=== PATIENT | female | born 1930 | race Caucasian/White ===

== ENCOUNTER → 2017-11-21 | Outpatient (CLI) | payer MEDICARE | END | disposition home or self-care (01) | LOC: KCIC DEXA 11:29 | DX: E28.8 Other ovarian dysfunction (principal); N28.89 Other specified disorders of kidney and ureter; M81.0 Age-related osteoporosis without current pathological fracture; M85.88 Other specified disorders of bone density and structure, other site | CPT/HCPCS: 77080 ==

== ENCOUNTER → 2017-12-31 | Outpatient (CLI) | payer MEDICARE ==
[2017-12-31 11:23] LABS: ADD MAN DIFF? NO
[2017-12-31 11:31] LABS: BASO % 1 % (0-3); EOS # 0.1 x10^3/uL (0.0-0.7); EOS % 1 % (0-3); HEMATOCRIT 33.5 % (36.0-47.0); LYMPH # 0.4 x10^3/uL (1.0-4.8); LYMPH % 7 % (24-48); MEAN CORPUSCULAR HEMOGLOBIN 32 pg (25-35); MEAN CORPUSCULAR HGB CONC 33 g/dL (31-37); MEAN CORPUSCULAR VOLUME 97 fL (79-100); MONO # 0.4 x10^3/uL (0.0-1.1); MONO % 7 % (0-9); NEUT # 5.2 x10^3uL (1.8-7.7); NEUT % 84 % (31-73); PLATELET COUNT 238 x10^3/uL (140-400); RED BLOOD COUNT 3.44 x10^6/uL (3.50-5.40); RED CELL DISTRIBUTION WIDTH 14.9 % (11.5-14.5); WHITE BLOOD COUNT 6.2 x10^3/uL (4.0-11.0)
[2017-12-31 11:35] LABS: INR 1.1 (0.8-1.1); PARTIAL THROMBOPLASTIN TIME 24 SEC (24-38); PROTHROMBIN TIME PATIENT 13.4 SEC (11.7-14.0)
[2017-12-31 11:41] LABS: ANION GAP 9 (6-14); BLOOD UREA NITROGEN 80 mg/dL (7-20); CALCIUM 9.8 mg/dL (8.5-10.1); CARBON DIOXIDE 25 mmol/L (21-32); CHLORIDE 104 mmol/L (98-107); CREATININE 3.5 mg/dL (0.6-1.0); GFR 12.4; GLUCOSE 122 mg/dL (70-99); POTASSIUM 4.1 mmol/L (3.5-5.1); SODIUM 138 mmol/L (136-145)
== END | disposition home or self-care (01) ==
LOC: LAB 10:53
DX: N18.6 End stage renal disease (principal)
CPT/HCPCS: 36415; 80048; 85025; 85610; 85730

== ENCOUNTER → 2018-01-11 | Outpatient (CLI) | payer MEDICARE | END | disposition home or self-care (01) | LOC: KCIC 15:23 | DX: R91.8 Other nonspecific abnormal finding of lung field (principal) | CPT/HCPCS: 71046 ==

== ENCOUNTER → 2018-01-22 | Outpatient (CLI) | payer MEDICARE | END | disposition home or self-care (01) | LOC: ECHO 12:39 | DX: I08.3 Combined rheumatic disorders of mitral, aortic and tricuspid valves (principal); I27.20 Pulmonary hypertension, unspecified | CPT/HCPCS: 93306 ==

== ENCOUNTER 2018-03-12 11:10 | Inpatient (IN) | payer MEDICARE ==
[2018-03-12 11:58] LABS: BASO % 1 % (0-3); EOS # 0.4 x10^3/uL (0.0-0.7); EOS % 8 % (0-3); HEMATOCRIT 26.9 % (36.0-47.0); HEMOGLOBIN 9.1 g/dL (12.0-15.5); LYMPH # 0.3 x10^3/uL (1.0-4.8); LYMPH % 6 % (24-48); MEAN CORPUSCULAR HEMOGLOBIN 33 pg (25-35); MEAN CORPUSCULAR HGB CONC 34 g/dL (31-37); MEAN CORPUSCULAR VOLUME 97 fL (79-100); MONO # 0.5 x10^3/uL (0.0-1.1); MONO % 9 % (0-9); NEUT # 4.5 x10^3uL (1.8-7.7); NEUT % 77 % (31-73); PLATELET COUNT 240 x10^3/uL (140-400); RED BLOOD COUNT 2.78 x10^6/uL (3.50-5.40); RED CELL DISTRIBUTION WIDTH 17.7 % (11.5-14.5); WHITE BLOOD COUNT 5.8 x10^3/uL (4.0-11.0)
[2018-03-12 12:00] LABS: ADD MAN DIFF? YES; ANION GAP 14 (6-14); BLOOD UREA NITROGEN 121 mg/dL (7-20); BUN/CREATININE RATIO 30 (6-20); CALCIUM 9.3 mg/dL (8.5-10.1); CARBON DIOXIDE 19 mmol/L (21-32); CHLORIDE 101 mmol/L (98-107); CREATININE 4.1 mg/dL (0.6-1.0); GFR 10.3; GLUCOSE 163 mg/dL (70-99); POTASSIUM 3.8 mmol/L (3.5-5.1); SODIUM 134 mmol/L (136-145)
[2018-03-12 12:04] LABS: ALBUMIN 3.1 g/dL (3.4-5.0); ALBUMIN/GLOBULIN RATIO 0.6 (1.0-1.7); ALK PHOS 76 U/L (46-116); ALT (SGPT) 22 U/L (14-59); AST (SGOT) 26 U/L (15-37); TOTAL BILIRUBIN 0.5 mg/dL (0.2-1.0); TOTAL PROTEIN 8.1 g/dL (6.4-8.2)
[2018-03-12 13:01] LABS: % EOS 4 % (0-5); % LYMPHS 6 % (24-48); % SEGS 90 % (35-66); PLT ESTIMATE ADEQUATE (ADEQUATE)
[2018-03-12] MEDS ORDERED: ONDANSETRON PF 4 MG/2 ML VIAL. IV ×2 (13:45→14:45)
[2018-03-12] MEDS ORDERED: fentaNYL PF VIAL 100 MCG/2 ML VIAL IV ×2 (13:45→15:00)
[2018-03-12] MEDS ORDERED: ALBUTEROL SULFATE 2.5 MG/3 ML NEBU. NEB (14:45)
[2018-03-12] MEDS ORDERED: ACETAMINOPHEN 325 MG TABLET. PO (14:45)
[2018-03-12] MEDS: INSULIN LISPRO 300 UNITS/3 ML INSULN.PEN. SQ (16:30)
[2018-03-12 16:50] LABS: POC GLUCOSE 129 mg/dL (70-99)
[2018-03-12] MEDS: IPRATRPIUM/ALBUTEROL 0.5/2.5MG 3 ML NEBU. NEB ×2 (17:08→19:48)
[2018-03-12] MEDS: IV NORMAL SALINE 1000ML BAG 1,000 ML IV (17:46)
[2018-03-12] MEDS: BUDESONIDE 0.5 MG/2 ML NEBU. NEB (19:48)
[2018-03-12] MEDS: ACETAMINOPHEN 325 MG TABLET. PO (21:14)
[2018-03-12] MEDS: SIMVASTATIN 40 MG TABLET. PO (21:14)
[2018-03-12 21:23] LABS: BILIRUBIN,URINE NEGATIVE (NEG); CLARITY,URINE TURBID; COLOR,URINE YELLOW; GLUCOSE,URINE NEGATIVE (NEG); NITRITE,URINE NEGATIVE (NEG); PROTEIN,URINE 100 mg/dL (NEG-TRACE); UROBILINOGEN,URINE 0.2 mg/dL (0.2 mg/dL)
[2018-03-12 21:29] LABS: BACTERIA,URINE MANY /HPF (0-FEW); WBC,URINE TNTC /HPF (0-4)
[2018-03-13 00:27] LABS: POC GLUCOSE 146 mg/dL (70-99)
[2018-03-13] MEDS: LEVOTHYROXINE 50 MCG TABLET PO (06:18)
[2018-03-13 06:37] LABS: ADD MAN DIFF? NO
[2018-03-13 07:05] LABS: BASO % 1 % (0-3); EOS # 0.1 x10^3/uL (0.0-0.7); EOS % 1 % (0-3); HEMOGLOBIN 8.1 g/dL (12.0-15.5); LYMPH # 0.3 x10^3/uL (1.0-4.8); LYMPH % 5 % (24-48); MEAN CORPUSCULAR HEMOGLOBIN 33 pg (25-35); MEAN CORPUSCULAR HGB CONC 34 g/dL (31-37); MEAN CORPUSCULAR VOLUME 97 fL (79-100); MONO # 0.5 x10^3/uL (0.0-1.1); MONO % 7 % (0-9); NEUT # 5.7 x10^3uL (1.8-7.7); NEUT % 86 % (31-73); PLATELET COUNT 204 x10^3/uL (140-400); RED BLOOD COUNT 2.47 x10^6/uL (3.50-5.40); RED CELL DISTRIBUTION WIDTH 17.2 % (11.5-14.5); WHITE BLOOD COUNT 6.6 x10^3/uL (4.0-11.0)
[2018-03-13 07:06] LABS: ANION GAP 15 (6-14); BLOOD UREA NITROGEN 118 mg/dL (7-20); CALCIUM 8.8 mg/dL (8.5-10.1); CARBON DIOXIDE 17 mmol/L (21-32); CHLORIDE 103 mmol/L (98-107); CREATININE 3.8 mg/dL (0.6-1.0); GFR 11.2; GLUCOSE 106 mg/dL (70-99); MAGNESIUM 2.6 mg/dL (1.8-2.4); PHOSPHORUS 4.9 mg/dL (2.6-4.7); POTASSIUM 4.1 mmol/L (3.5-5.1); SODIUM 135 mmol/L (136-145)
[2018-03-13] MEDS: INSULIN LISPRO 300 UNITS/3 ML INSULN.PEN. SQ ×3 (07:30→16:30)
[2018-03-13] MEDS: BUDESONIDE 0.5 MG/2 ML NEBU. NEB ×2 (07:50→20:00)
[2018-03-13] MEDS: IPRATRPIUM/ALBUTEROL 0.5/2.5MG 3 ML NEBU. NEB ×4 (07:50→20:00)
[2018-03-13 08:40] LABS: POC GLUCOSE 99 mg/dL (70-99)
[2018-03-13] MEDS: amLODIPine BESYLATE 5 MG TABLET PO (09:00)
[2018-03-13] MEDS: PANTOPRAZOLE 40 MG TABLET.DR. PO (10:00)
[2018-03-13] MEDS: ACETAMINOPHEN 325 MG TABLET. PO ×2 (10:01→21:14)
[2018-03-13] MEDS: CALCITRIOL 0.25 MCG CAPSULE. PO (10:01)
[2018-03-13 12:11] LABS: POC GLUCOSE 119 mg/dL (70-99)
[2018-03-13] MEDS ORDERED: LIDOCAINE WITH 8.4% SOD BICARB 3 ML DISP.SYRIN. (13:29)
[2018-03-13] MEDS ORDERED: HEPARIN for IV BOLUS 10,000 UNIT/10 ML VIAL. (13:29)
[2018-03-13] MEDS: LIDOCAINE WITH 8.4% SOD BICARB 3 ML DISP.SYRIN. IJ (14:44)
[2018-03-13 15:06] LABS: HEPATITIS B SURFACE AG Nonreactive (Nonreactive)
[2018-03-13 15:29] LABS: HEPATITIS B SURFACE AB Nonreactive
[2018-03-13 17:25] LABS: POC GLUCOSE 134 mg/dL (70-99)
[2018-03-13] MEDS: IV NORMAL SALINE 1000ML BAG 1,000 ML IV (17:45)
[2018-03-13] MEDS ORDERED: IV NORMAL SALINE 1000ML BAG 1,000 ML IV ×2 (17:46)
[2018-03-13] MEDS ORDERED: DIALYSIS PATIENT. MC (18:00)
[2018-03-13] MEDS ORDERED: diphenhydrAMINE 50 MG/ML VIAL IV ×2 (18:00)
[2018-03-13] MEDS: SIMVASTATIN 40 MG TABLET. PO (21:14)
[2018-03-13 21:23] LABS: POC GLUCOSE 124 mg/dL (70-99)
[2018-03-14 02:18] LABS: HEMOGLOBIN A1C 4.8 % (4.8-5.6)
[2018-03-14] MEDS: LEVOTHYROXINE 50 MCG TABLET PO (06:40)
[2018-03-14] MEDS: INSULIN LISPRO 300 UNITS/3 ML INSULN.PEN. SQ ×3 (07:30→16:30)
[2018-03-14] MEDS: BUDESONIDE 0.5 MG/2 ML NEBU. NEB ×2 (08:06→18:10)
[2018-03-14] MEDS: IPRATRPIUM/ALBUTEROL 0.5/2.5MG 3 ML NEBU. NEB ×4 (08:06→18:10)
[2018-03-14] MEDS: IV NORMAL SALINE 1000ML BAG 1,000 ML IV (08:16)
[2018-03-14] MEDS: amLODIPine BESYLATE 5 MG TABLET PO (08:17)
[2018-03-14] MEDS: ACETAMINOPHEN 325 MG TABLET. PO ×2 (08:17→20:56)
[2018-03-14] MEDS: PANTOPRAZOLE 40 MG TABLET.DR. PO (08:17)
[2018-03-14 09:28] LABS: ADD MAN DIFF? NO
[2018-03-14 09:36] LABS: BASO % 0 % (0-3); EOS # 0.3 x10^3/uL (0.0-0.7); EOS % 4 % (0-3); HEMATOCRIT 23.8 % (36.0-47.0); HEMOGLOBIN 7.9 g/dL (12.0-15.5); LYMPH # 0.2 x10^3/uL (1.0-4.8); LYMPH % 3 % (24-48); MEAN CORPUSCULAR HEMOGLOBIN 32 pg (25-35); MEAN CORPUSCULAR HGB CONC 33 g/dL (31-37); MEAN CORPUSCULAR VOLUME 96 fL (79-100); MONO # 0.3 x10^3/uL (0.0-1.1); MONO % 4 % (0-9); NEUT # 7.2 x10^3uL (1.8-7.7); NEUT % 89 % (31-73); PLATELET COUNT 186 x10^3/uL (140-400); RED BLOOD COUNT 2.47 x10^6/uL (3.50-5.40); RED CELL DISTRIBUTION WIDTH 17.5 % (11.5-14.5); WHITE BLOOD COUNT 8.1 x10^3/uL (4.0-11.0)
[2018-03-14 09:41] LABS: ANION GAP 7 (6-14); BLOOD UREA NITROGEN 51 mg/dL (7-20); CALCIUM 8.7 mg/dL (8.5-10.1); CARBON DIOXIDE 29 mmol/L (21-32); CHLORIDE 97 mmol/L (98-107); CREATININE 2.3 mg/dL (0.6-1.0); GFR 20.1; GLUCOSE 140 mg/dL (70-99); POTASSIUM 3.7 mmol/L (3.5-5.1); SODIUM 133 mmol/L (136-145)
[2018-03-14 11:25] LABS: POC GLUCOSE 99 mg/dL (70-99)
[2018-03-14 11:26] LABS: POC GLUCOSE 110 mg/dL (70-99)
[2018-03-14] MEDS ORDERED: IV NORMAL SALINE 1000ML BAG 1,000 ML IV ×2 (11:39)
[2018-03-14] MEDS ORDERED: DIALYSIS PATIENT. MC ×2 (11:45)
[2018-03-14] MEDS ORDERED: ALBUMIN HUMAN 25% 200 ML IV (11:45)
[2018-03-14] MEDS ORDERED: 0.9 % SODIUM CHLORIDE 10 ML DISP.SYRIN. IV (11:45)
[2018-03-14 18:07] LABS: POC GLUCOSE 101 mg/dL (70-99)
[2018-03-14] MEDS: SIMVASTATIN 40 MG TABLET. PO (20:56)
[2018-03-14 21:11] LABS: POC GLUCOSE 114 mg/dL (70-99)
[2018-03-15 06:25] LABS: ADD MAN DIFF? NO
[2018-03-15 06:34] LABS: BASO % 0 % (0-3); EOS % 0 % (0-3); HEMATOCRIT 23.9 % (36.0-47.0); HEMOGLOBIN 7.9 g/dL (12.0-15.5); LYMPH # 0.2 x10^3/uL (1.0-4.8); LYMPH % 2 % (24-48); MEAN CORPUSCULAR HEMOGLOBIN 32 pg (25-35); MEAN CORPUSCULAR HGB CONC 33 g/dL (31-37); MEAN CORPUSCULAR VOLUME 98 fL (79-100); MONO # 0.3 x10^3/uL (0.0-1.1); MONO % 3 % (0-9); NEUT # 7.8 x10^3uL (1.8-7.7); NEUT % 94 % (31-73); PLATELET COUNT 180 x10^3/uL (140-400); RED BLOOD COUNT 2.44 x10^6/uL (3.50-5.40); RED CELL DISTRIBUTION WIDTH 17.4 % (11.5-14.5); WHITE BLOOD COUNT 8.3 x10^3/uL (4.0-11.0)
[2018-03-15] MEDS: LEVOTHYROXINE 50 MCG TABLET PO (06:37)
[2018-03-15 06:51] LABS: ANION GAP 4 (6-14); BLOOD UREA NITROGEN 26 mg/dL (7-20); CALCIUM 8.5 mg/dL (8.5-10.1); CARBON DIOXIDE 32 mmol/L (21-32); CHLORIDE 99 mmol/L (98-107); CREATININE 1.9 mg/dL (0.6-1.0); GLUCOSE 115 mg/dL (70-99); POTASSIUM 4.5 mmol/L (3.5-5.1); SODIUM 135 mmol/L (136-145)
[2018-03-15 07:01] LABS: PREALBUMIN 14.4 mg/dL (16.0-42.0)
[2018-03-15] MEDS: BUDESONIDE 0.5 MG/2 ML NEBU. NEB ×2 (07:08→19:02)
[2018-03-15] MEDS: IPRATRPIUM/ALBUTEROL 0.5/2.5MG 3 ML NEBU. NEB ×4 (07:08→19:01)
[2018-03-15] MEDS: INSULIN LISPRO 300 UNITS/3 ML INSULN.PEN. SQ ×3 (07:30→16:30)
[2018-03-15 08:21] LABS: POC GLUCOSE 114 mg/dL (70-99)
[2018-03-15] MEDS: CALCITRIOL 0.25 MCG CAPSULE. PO (08:47)
[2018-03-15] MEDS: PANTOPRAZOLE 40 MG TABLET.DR. PO (08:48)
[2018-03-15] MEDS: amLODIPine BESYLATE 5 MG TABLET PO (08:48)
[2018-03-15] MEDS: ACETAMINOPHEN 325 MG TABLET. PO ×2 (08:48→22:27)
[2018-03-15 12:00] LABS: POC GLUCOSE 158 mg/dL (70-99)
[2018-03-15 16:38] LABS: POC GLUCOSE 146 mg/dL (70-99)
[2018-03-15 20:29] LABS: POC GLUCOSE 159 mg/dL (70-99)
[2018-03-15] MEDS: SIMVASTATIN 40 MG TABLET. PO (22:27)
[2018-03-16 04:28] LABS: ADD MAN DIFF? NO
[2018-03-16 04:56] LABS: BASO % 0 % (0-3); EOS # 0.3 x10^3/uL (0.0-0.7); EOS % 3 % (0-3); HEMATOCRIT 22.5 % (36.0-47.0); HEMOGLOBIN 7.3 g/dL (12.0-15.5); LYMPH # 0.6 x10^3/uL (1.0-4.8); LYMPH % 7 % (24-48); MEAN CORPUSCULAR HEMOGLOBIN 32 pg (25-35); MEAN CORPUSCULAR HGB CONC 33 g/dL (31-37); MEAN CORPUSCULAR VOLUME 99 fL (79-100); MONO # 0.5 x10^3/uL (0.0-1.1); MONO % 6 % (0-9); NEUT # 7.2 x10^3uL (1.8-7.7); NEUT % 84 % (31-73); PLATELET COUNT 195 x10^3/uL (140-400); RED BLOOD COUNT 2.28 x10^6/uL (3.50-5.40); RED CELL DISTRIBUTION WIDTH 17.5 % (11.5-14.5); WHITE BLOOD COUNT 8.6 x10^3/uL (4.0-11.0)
[2018-03-16 05:13] LABS: ANION GAP 7 (6-14); BLOOD UREA NITROGEN 55 mg/dL (7-20); CALCIUM 9.5 mg/dL (8.5-10.1); CARBON DIOXIDE 30 mmol/L (21-32); CHLORIDE 98 mmol/L (98-107); CREATININE 2.9 mg/dL (0.6-1.0); GFR 15.4; GLUCOSE 114 mg/dL (70-99); POTASSIUM 3.9 mmol/L (3.5-5.1); SODIUM 135 mmol/L (136-145)
[2018-03-16] MEDS: LEVOTHYROXINE 50 MCG TABLET PO (05:33)
[2018-03-16] MEDS: IPRATRPIUM/ALBUTEROL 0.5/2.5MG 3 ML NEBU. NEB ×4 (07:15→20:00)
[2018-03-16] MEDS: BUDESONIDE 0.5 MG/2 ML NEBU. NEB ×2 (07:16→20:00)
[2018-03-16] MEDS: INSULIN LISPRO 300 UNITS/3 ML INSULN.PEN. SQ ×3 (07:30→16:30)
[2018-03-16] MEDS: PANTOPRAZOLE 40 MG TABLET.DR. PO (07:30)
[2018-03-16 08:20] LABS: POC GLUCOSE 92 mg/dL (70-99)
[2018-03-16] MEDS ORDERED: IV NORMAL SALINE 1000ML BAG 1,000 ML IV ×2 (08:59)
[2018-03-16] MEDS: amLODIPine BESYLATE 5 MG TABLET PO (09:00)
[2018-03-16] MEDS: ACETAMINOPHEN 325 MG TABLET. PO ×2 (09:00→20:54)
[2018-03-16] MEDS ORDERED: DIALYSIS PATIENT. MC ×2 (09:00)
[2018-03-16] MEDS: CEFPODOXIME PROXETIL 100 MG TABLET. PO ×2 (11:30→20:53)
[2018-03-16 17:19] LABS: POC GLUCOSE 110 mg/dL (70-99)
[2018-03-16 20:44] LABS: POC GLUCOSE 134 mg/dL (70-99)
[2018-03-16] MEDS: SIMVASTATIN 40 MG TABLET. PO (20:55)
[2018-03-17] MEDS: LEVOTHYROXINE 50 MCG TABLET PO (06:05)
[2018-03-17] MEDS: INSULIN LISPRO 300 UNITS/3 ML INSULN.PEN. SQ ×3 (07:30→16:30)
[2018-03-17] MEDS: BUDESONIDE 0.5 MG/2 ML NEBU. NEB ×2 (07:39→20:42)
[2018-03-17] MEDS: IPRATRPIUM/ALBUTEROL 0.5/2.5MG 3 ML NEBU. NEB ×4 (07:39→20:42)
[2018-03-17 07:59] LABS: POC GLUCOSE 81 mg/dL (70-99)
[2018-03-17] MEDS: CEFPODOXIME PROXETIL 100 MG TABLET. PO ×2 (08:25→21:15)
[2018-03-17] MEDS: PANTOPRAZOLE 40 MG TABLET.DR. PO (08:25)
[2018-03-17] MEDS: CALCITRIOL 0.25 MCG CAPSULE. PO (08:25)
[2018-03-17] MEDS: ACETAMINOPHEN 325 MG TABLET. PO ×2 (08:26→21:15)
[2018-03-17] MEDS: amLODIPine BESYLATE 5 MG TABLET PO (08:26)
[2018-03-17] MEDS ORDERED: MAGNESIUM SULFATE 2GM 50 ML IV (09:00)
[2018-03-17 11:00] LABS: RETIC COUNT 2.2 % (0.5-2.5)
[2018-03-17 11:03] LABS: % SAT IRON 16 % (15-34); IRON,SERUM 26 ug/dL (50-170)
[2018-03-17 11:15] LABS: FERRITIN 615 ng/mL (8-252)
[2018-03-17 11:58] LABS: POC GLUCOSE 102 mg/dL (70-99)
[2018-03-17 16:58] LABS: POC GLUCOSE 81 mg/dL (70-99)
[2018-03-17 20:57] LABS: POC GLUCOSE 158 mg/dL (70-99)
[2018-03-17] MEDS: DARBEPOETIN ALFA 60 MCG/0.3 ML DISP.SYRIN. SQ (21:14)
[2018-03-17] MEDS: SIMVASTATIN 40 MG TABLET. PO (21:15)
[2018-03-18 05:17] LABS: HEMOGLOBIN 7.1 g/dL (12.0-15.5)
[2018-03-18 05:29] LABS: ALBUMIN 2.5 g/dL (3.4-5.0); ANION GAP 7 (6-14); BLOOD UREA NITROGEN 41 mg/dL (7-20); CALCIUM 8.5 mg/dL (8.5-10.1); CARBON DIOXIDE 29 mmol/L (21-32); CHLORIDE 102 mmol/L (98-107); CREATININE 2.7 mg/dL (0.6-1.0); GFR 16.7; GLUCOSE 87 mg/dL (70-99); MAGNESIUM 1.9 mg/dL (1.8-2.4); PHOSPHORUS 2.9 mg/dL (2.6-4.7); POTASSIUM 4.1 mmol/L (3.5-5.1); SODIUM 138 mmol/L (136-145)
[2018-03-18] MEDS: LEVOTHYROXINE 50 MCG TABLET PO (06:18)
[2018-03-18 07:20] LABS: POC GLUCOSE 71 mg/dL (70-99)
[2018-03-18] MEDS: INSULIN LISPRO 300 UNITS/3 ML INSULN.PEN. SQ ×3 (07:30→16:30)
[2018-03-18] MEDS: PANTOPRAZOLE 40 MG TABLET.DR. PO (07:30)
[2018-03-18] MEDS: amLODIPine BESYLATE 5 MG TABLET PO (08:13)
[2018-03-18 08:19] LABS: PARTIAL THROMBOPLASTIN TIME 26 SEC (24-38)
[2018-03-18] MEDS: IPRATRPIUM/ALBUTEROL 0.5/2.5MG 3 ML NEBU. NEB ×4 (08:19→20:13)
[2018-03-18] MEDS: BUDESONIDE 0.5 MG/2 ML NEBU. NEB ×2 (08:19→20:13)
[2018-03-18] MEDS: ACETAMINOPHEN 325 MG TABLET. PO ×2 (09:00→20:12)
[2018-03-18] MEDS: CEFPODOXIME PROXETIL 100 MG TABLET. PO ×2 (09:00→20:10)
[2018-03-18] MEDS ORDERED: HEPARIN for IV BOLUS 10,000 UNIT/10 ML VIAL. (10:47)
[2018-03-18] MEDS ORDERED: LIDOCAINE 1%/EPI 1:100,000 20 ML VIAL. (10:47)
[2018-03-18] MEDS ORDERED: fentaNYL PF VIAL 100 MCG/2 ML VIAL (10:56)
[2018-03-18] MEDS ORDERED: MIDAZOLAM HCL/PF 2 MG/2 ML VIAL. (10:56)
[2018-03-18] MEDS: LIDOCAINE 1%/EPI 1:100,000 20 ML VIAL. IJ (11:33)
[2018-03-18] MEDS: HEPARIN for IV BOLUS 10,000 UNIT/10 ML VIAL. INT CAT (11:33)
[2018-03-18] MEDS: MIDAZOLAM HCL/PF 2 MG/2 ML VIAL. IV (11:33)
[2018-03-18] MEDS: fentaNYL PF VIAL 100 MCG/2 ML VIAL IV (11:34)
[2018-03-18 12:03] LABS: POC GLUCOSE 91 mg/dL (70-99)
[2018-03-18 17:05] LABS: POC GLUCOSE 107 mg/dL (70-99)
[2018-03-18] MEDS: SIMVASTATIN 40 MG TABLET. PO (20:10)
[2018-03-18 21:26] LABS: POC GLUCOSE 116 mg/dL (70-99)
[2018-03-19 04:33] LABS: ADD MAN DIFF? NO
[2018-03-19 04:45] LABS: BASO % 0 % (0-3); EOS # 0.9 x10^3/uL (0.0-0.7); EOS % 12 % (0-3); HEMATOCRIT 21.4 % (36.0-47.0); LYMPH # 0.3 x10^3/uL (1.0-4.8); LYMPH % 5 % (24-48); MEAN CORPUSCULAR HEMOGLOBIN 32 pg (25-35); MEAN CORPUSCULAR HGB CONC 33 g/dL (31-37); MEAN CORPUSCULAR VOLUME 99 fL (79-100); MONO # 0.3 x10^3/uL (0.0-1.1); MONO % 5 % (0-9); NEUT # 5.7 x10^3uL (1.8-7.7); NEUT % 78 % (31-73); PLATELET COUNT 195 x10^3/uL (140-400); RED BLOOD COUNT 2.17 x10^6/uL (3.50-5.40); WHITE BLOOD COUNT 7.3 x10^3/uL (4.0-11.0)
[2018-03-19 04:59] LABS: ALBUMIN 2.5 g/dL (3.4-5.0); ANION GAP 7 (6-14); BLOOD UREA NITROGEN 53 mg/dL (7-20); CALCIUM 8.8 mg/dL (8.5-10.1); CARBON DIOXIDE 28 mmol/L (21-32); CHLORIDE 102 mmol/L (98-107); CREATININE 3.1 mg/dL (0.6-1.0); GFR 14.2; GLUCOSE 94 mg/dL (70-99); PHOSPHORUS 4.4 mg/dL (2.6-4.7); POTASSIUM 4.4 mmol/L (3.5-5.1); SODIUM 137 mmol/L (136-145)
[2018-03-19] MEDS: LEVOTHYROXINE 50 MCG TABLET PO (05:41)
[2018-03-19 07:29] LABS: POC GLUCOSE 90 mg/dL (70-99)
[2018-03-19] MEDS: INSULIN LISPRO 300 UNITS/3 ML INSULN.PEN. SQ ×3 (07:30→16:30)
[2018-03-19] MEDS: IPRATRPIUM/ALBUTEROL 0.5/2.5MG 3 ML NEBU. NEB ×4 (07:59→20:20)
[2018-03-19] MEDS: BUDESONIDE 0.5 MG/2 ML NEBU. NEB ×2 (07:59→20:20)
[2018-03-19] MEDS: ACETAMINOPHEN 325 MG TABLET. PO ×2 (09:16→21:06)
[2018-03-19] MEDS: CALCITRIOL 0.25 MCG CAPSULE. PO (09:16)
[2018-03-19] MEDS: PANTOPRAZOLE 40 MG TABLET.DR. PO (09:16)
[2018-03-19] MEDS: CEFPODOXIME PROXETIL 100 MG TABLET. PO ×2 (09:16→21:06)
[2018-03-19 11:31] LABS: POC GLUCOSE 178 mg/dL (70-99)
[2018-03-19] MEDS ORDERED: IV NORMAL SALINE 1000ML BAG 1,000 ML IV (12:31)
[2018-03-19] MEDS ORDERED: DIALYSIS PATIENT. MC ×2 (12:45)
[2018-03-19] MEDS ORDERED: 0.9 % SODIUM CHLORIDE 10 ML DISP.SYRIN. IV ×2 (12:45)
[2018-03-19 13:52] LABS: IMMEDIATE SPIN CROSSMATCH 1 2
[2018-03-19 16:31] LABS: POC GLUCOSE 75 mg/dL (70-99)
[2018-03-19] MEDS: LACTOBACILLUS RHAMNOSUS GG 1 CAPSULE. PO (21:06)
[2018-03-19] MEDS: SIMVASTATIN 40 MG TABLET. PO (21:06)
[2018-03-19 22:41] LABS: POC GLUCOSE 136 mg/dL (70-99)
[2018-03-20 04:49] LABS: ALBUMIN 2.4 g/dL (3.4-5.0); ANION GAP 6 (6-14); CALCIUM 9.2 mg/dL (8.5-10.1); CARBON DIOXIDE 29 mmol/L (21-32); CHLORIDE 101 mmol/L (98-107); CREATININE 2.6 mg/dL (0.6-1.0); GFR 17.4; GLUCOSE 88 mg/dL (70-99); MAGNESIUM 1.8 mg/dL (1.8-2.4); PHOSPHORUS 3.1 mg/dL (2.6-4.7); POTASSIUM 3.8 mmol/L (3.5-5.1); SODIUM 136 mmol/L (136-145)
[2018-03-20 05:20] LABS: BLOOD UREA NITROGEN 27 mg/dL (7-20)
[2018-03-20] MEDS: LEVOTHYROXINE 50 MCG TABLET PO (06:09)
[2018-03-20] MEDS: INSULIN LISPRO 300 UNITS/3 ML INSULN.PEN. SQ (07:30)
[2018-03-20] MEDS: BUDESONIDE 0.5 MG/2 ML NEBU. NEB (07:37)
[2018-03-20] MEDS: IPRATRPIUM/ALBUTEROL 0.5/2.5MG 3 ML NEBU. NEB (07:37)
[2018-03-20 08:01] LABS: POC GLUCOSE 72 mg/dL (70-99)
[2018-03-20 08:49] LABS: HEMATOCRIT 29.2 % (36.0-47.0); HEMOGLOBIN 9.8 g/dL (12.0-15.5); MEAN CORPUSCULAR HGB CONC 34 g/dL (31-37)
[2018-03-20] MEDS: CEFPODOXIME PROXETIL 100 MG TABLET. PO (10:26)
[2018-03-20] MEDS: ACETAMINOPHEN 325 MG TABLET. PO (10:27)
[2018-03-20] MEDS: PANTOPRAZOLE 40 MG TABLET.DR. PO (10:27)
[2018-03-20] MEDS: LACTOBACILLUS RHAMNOSUS GG 1 CAPSULE. PO (10:27)
== END 2018-03-20 12:03 | disposition home health service (06) | DRG 981 ==
LOC: ER 11:10 → 6 SOUTH 14:37
PROC: 02H633Z Insertion of Infusion Device into Right Atrium, Percutaneous Approach (ICD-10-PCS; 2018-03-13)
PROC: B2141ZZ Fluoroscopy of Right Heart using Low Osmolar Contrast (ICD-10-PCS; 2018-03-13)
PROC: B244ZZZ Ultrasonography of Right Heart (ICD-10-PCS; 2018-03-13)
PROC: 5A1D70Z Performance of Urinary Filtration, Intermittent, Less than 6 Hours Per Day (ICD-10-PCS; 2018-03-14)
PROC: 5A1D70Z Performance of Urinary Filtration, Intermittent, Less than 6 Hours Per Day (ICD-10-PCS; 2018-03-16)
PROC: 0JH63XZ Insertion of Tunneled Vascular Access Device into Chest Subcutaneous Tissue and Fascia, Percutaneous Approach (ICD-10-PCS; 2018-03-18)
PROC: 05PY03Z Removal of Infusion Device from Upper Vein, Open Approach (ICD-10-PCS; 2018-03-18)
PROC: 02H633Z Insertion of Infusion Device into Right Atrium, Percutaneous Approach (ICD-10-PCS; 2018-03-18)
PROC: B2141ZZ Fluoroscopy of Right Heart using Low Osmolar Contrast (ICD-10-PCS; 2018-03-18)
PROC: 30233N1 Transfusion of Nonautologous Red Blood Cells into Peripheral Vein, Percutaneous Approach (ICD-10-PCS; principal; 2018-03-19)
PROC: 5A1D70Z Performance of Urinary Filtration, Intermittent, Less than 6 Hours Per Day (ICD-10-PCS; 2018-03-19)
DX: N14.1 Nephropathy induced by other drugs, medicaments and biological substances (principal); I50.33 Acute on chronic diastolic (congestive) heart failure; E43 Unspecified severe protein-calorie malnutrition; J96.01 Acute respiratory failure with hypoxia; E44.0 Moderate protein-calorie malnutrition; I13.2 Hypertensive heart and chronic kidney disease with heart failure and with stage 5 chronic kidney disease, or end stage renal disease; N39.0 Urinary tract infection, site not specified; N17.0 Acute kidney failure with tubular necrosis; B96.20 Unspecified Escherichia coli [E. coli] as the cause of diseases classified elsewhere; E03.9 Hypothyroidism, unspecified; D63.1 Anemia in chronic kidney disease; E78.5 Hyperlipidemia, unspecified; H91.90 Unspecified hearing loss, unspecified ear; I07.1 Rheumatic tricuspid insufficiency; I27.20 Pulmonary hypertension, unspecified; I34.0 Nonrheumatic mitral (valve) insufficiency; I35.0 Nonrheumatic aortic (valve) stenosis; I70.1 Atherosclerosis of renal artery; J30.9 Allergic rhinitis, unspecified; J84.10 Pulmonary fibrosis, unspecified; M10.9 Gout, unspecified; N18.6 End stage renal disease; N25.81 Secondary hyperparathyroidism of renal origin; Z96.649 Presence of unspecified artificial hip joint; Z96.659 Presence of unspecified artificial knee joint; M19.90 Unspecified osteoarthritis, unspecified site; M47.816 Spondylosis without myelopathy or radiculopathy, lumbar region; E21.3 Hyperparathyroidism, unspecified; Z88.8 Allergy status to other drugs, medicaments and biological substances; Z82.49 Family history of ischemic heart disease and other diseases of the circulatory system; Z90.49 Acquired absence of other specified parts of digestive tract; Z99.2 Dependence on renal dialysis; Z85.3 Personal history of malignant neoplasm of breast; Z98.42 Cataract extraction status, left eye; Z68.22 Body mass index [BMI] 22.0-22.9, adult; Z79.899 Other long term (current) drug therapy; T50.8X5A Adverse effect of diagnostic agents, initial encounter
CPT/HCPCS: 36415; 36556; 36581; 71045; 71046; 76937; 77001; 80048; 80053; 80069; 81001; 82728; 82962; 83036; 83540; 83550; 83735; 84100; 84134; 85007; 85014; 85018; 85025; 85045; 85610; 85730; 86704; 86706; 86850; 86900; 86901; 86920; 87086; 87186; 87340; 92610-GN; 94640; 94760; 97110-GP; 97116-GP; 97161-GP; 97166-GO; 97530-GO; 97530-GP; 97535-GO; 99152; 99153; 99285; 99285-25; A4215; C1750; C1769; C1892; J0690; J0881; J1644; J1815; J2250; J3010; J3490; J7030; J7620; J7626; P9016

== ENCOUNTER 2018-07-09 06:15 | Day surgery (SDC) | payer MEDICARE ==
[~2018-07-09] VITALS: Ht 162.6 cm; Wt 59.1 kg
[~2018-07-09 06:15] MED LIST: ACET325T9 PO; AMLO10TA6 PO; ASPI-630 PO; ATOR10TA PO; CALC0.25 PO; CEFP100T PO; DOCU-150 PO; FOLI0.8T21 PO; FURO-69 PO; HEPARIN SODIUM 5,000 UNIT in IV NORMAL SALINE 500ML BAG 500 ML IRR ONE; IRON45TA3 PO; LACT1CAP19 PO; LEVO50TA5 PO; LOVA40TA2 PO; MONT10TA9 PO; OXYB92GE TD; POLY17PO29 PO; PSYL1PAC7 PO; SENN8.6T99 PO; aranesp
[2018-07-09] MEDS ORDERED: BUPIVAC MPF-EPI 0.5%-1:200000 30 ML VIAL. ONE (06:57)
[2018-07-09] MEDS ORDERED: PROCHLORPERAZINE 10 MG/2 ML VIAL. IV PRN (07:00)
[2018-07-09] MEDS ORDERED: IV RINGERS,LACTATED 1000ML 1,000 ML IV SCH (07:00)
[2018-07-09] MEDS ORDERED: HYDROmorphone 2 MG/ML VIAL IV PRN (07:00)
[2018-07-09] MEDS ORDERED: ONDANSETRON PF 4 MG/2 ML VIAL. IV PRN (07:00)
[2018-07-09] MEDS ORDERED: MORPHINE SULFATE 2 MG/ML VIAL. IV PRN (07:00)
[2018-07-09] MEDS ORDERED: fentaNYL PF VIAL 100 MCG/2 ML VIAL IV PRN ×2 (07:00)
[2018-07-09] MEDS ORDERED: LIDOCAINE 1% PF 2 ML VIAL. ID PRN (07:00)
[2018-07-09] MEDS ORDERED: IV NORMAL SALINE 1000ML BAG 1,000 ML IV SCH (07:15)
[2018-07-09 07:25] LABS: BASO % 1 % (0-3); EOS # 0.6 x10^3/uL (0.0-0.7); EOS % 10 % (0-3); HEMATOCRIT 33.7 % (36.0-47.0); HEMOGLOBIN 11.4 g/dL (12.0-15.5); LYMPH # 0.6 x10^3/uL (1.0-4.8); LYMPH % 10 % (24-48); MEAN CORPUSCULAR HEMOGLOBIN 35 pg (25-35); MEAN CORPUSCULAR HGB CONC 34 g/dL (31-37); MEAN CORPUSCULAR VOLUME 102 fL (79-100); MONO # 0.6 x10^3/uL (0.0-1.1); MONO % 10 % (0-9); NEUT # 4.3 x10^3uL (1.8-7.7); NEUT % 70 % (31-73); PLATELET COUNT 242 x10^3/uL (140-400); RED CELL DISTRIBUTION WIDTH 16.4 % (11.5-14.5); WHITE BLOOD COUNT 6.2 x10^3/uL (4.0-11.0)
[2018-07-09 07:33] LABS: ALBUMIN 3.4 g/dL (3.4-5.0); CALCIUM 9.3 mg/dL (8.5-10.1); CREATININE 2.9 mg/dL (0.6-1.0); GFR 15.4; POTASSIUM 4.1 mmol/L (3.5-5.1)
[2018-07-09] MEDS ORDERED: NEOSTIGMINE METHYLSULFATE 5 MG/5 ML SYRINGE. ONE (07:33)
[2018-07-09] MEDS ORDERED: fentaNYL PF VIAL 100 MCG/2 ML VIAL ONE (07:33)
[2018-07-09] MEDS ORDERED: ROCURONIUM 50 MG/5 ML VIAL. ONE (07:33)
[2018-07-09] MEDS ORDERED: SEVOFLURANE 61 TO 120 MINUTES. IH ONE (07:33)
[2018-07-09] MEDS ORDERED: ETOMIDATE 20 MG/10 ML VIAL. IV ONE (07:34)
[2018-07-09] MEDS ORDERED: LIDOCAINE 2% PF Vial for OR 5 ML VIAL. ONE (07:34)
[2018-07-09] MEDS ORDERED: GLYCOPYRROLATE 1 MG/5 ML VIAL. ONE (07:34)
[2018-07-09] MEDS ORDERED: ONDANSETRON PF 4 MG/2 ML VIAL. ONE (07:34)
[2018-07-09] MEDS ORDERED: PHENYLEPHRINE in 0.9% NACL PF 1 MG/10 ML SYRINGE. IV ONE (07:34)
[2018-07-09] MEDS ORDERED: DEXAMETHASONE SOD PHOS 20 MG/5 ML VIAL. ONE (07:34)
--- NOTE | 2018-07-09 09:18 | PDOC ---
BRIEF OPERATIVE NOTE Date: Jul 09, 2018 Pre-Op Diagnosis ESRD on hemodialysis Post-Op Diagnosis same Procedure Performed l/s placement PD catheter Surgeon Jakub Anesthesia Type: General Blood Loss 5cc IV Fluid 400cc Specimens Obtained none Findings no adhesions Complications none Operative Note Wk # [id number] RHETT ESPINOZA MD Jul 09, 2018 09:18
--- NOTE | 2018-07-09 09:20 | DISCH ---
DISCHARGE INSTRUCTIONS Condition on Discharge Condition on Discharge: Stable Activity After Discharge Activity Instructions for Disc: Activity as tolerated, Avoid exertion Driving Instructions after Dis: Do not drive Diet after Discharge Diet after Discharge: Renal Dialysis Diet Texture: Regular Swallowing Supervision: None needed Wound Incision Care Wound/Incision Care: Ice to area for comfort, Keep wound/cast CDI Contacting the [facility] after DC Call your doctor for: Concerns you may have Follow-Up Follow up with: Jakub in two weeks Treatment/Equipment after DC Adaptive Equipment Issued: Kaushik William LEE V MD Jul 09, 2018 09:20
[2018-07-09 10:20] VITALS: BP 116/64
--- NOTE | 2018-07-09 10:40 | OP ---
DATE OF SURGERY: 07/09/2018 PREOPERATIVE DIAGNOSIS: End-stage renal disease, on hemodialysis. POSTOPERATIVE DIAGNOSIS: End-stage renal disease on hemodialysis. PROCEDURE: Laparoscopic placement of peritoneal dialysis catheter. SURGEON: Rafael Espinoza MD. ANESTHESIA: General endotracheal. BLOOD LOSS: 5 mL. INTRAVENOUS FLUID: 400 mL. DESCRIPTION OF PROCEDURE: The patient brought to the operating suite, given a general endotracheal anesthetic and the abdomen prepped and draped in usual sterile fashion. A 0.5% Marcaine with epinephrine was infiltrated in the skin in the epigastric midline. A small incision made and a 5-mm Visiport used to safely gain access into the abdominal cavity, taking care to avoid injury to abdominal contents. Pneumoperitoneum established with a pressure of 6 cm of water providing adequate distention of the thin abdominal wall. The insertion site was selected using the template, infiltrated with local anesthetic, incised and under direct vision, the needle passed into the abdominal cavity. Needle removed. Dilator was threaded through the sheath and removed. The catheter was then threaded into the pelvis seating the Dacron cuff just above the peritoneum. Sheath removed. Remaining catheter tunneled subcutaneously at the access site. The catheter was flushed with 500 mL of normal saline, which are readily accepted and drained a similar amount. Skin incision was closed with subcutaneous 3-0 Vicryl and skin sarmad. Sterile dressing applied. The patient awakened from her anesthetic and taken to the recovery room in satisfactory condition. RAFAEL ESPINOZA MD DR: MARY/sunil JOB#: [id number] / [id number] CHLOE Ventura MD
== END 2018-07-09 10:20 | disposition home or self-care (01) ==
LOC: SURG 06:15
PROVIDERS: ATTEND Surgery
DX: I13.2 Hypertensive heart and chronic kidney disease with heart failure and with stage 5 chronic kidney disease, or end stage renal disease (principal); N18.6 End stage renal disease; I50.9 Heart failure, unspecified; Z99.2 Dependence on renal dialysis; E78.5 Hyperlipidemia, unspecified; I35.0 Nonrheumatic aortic (valve) stenosis; I25.10 Atherosclerotic heart disease of native coronary artery without angina pectoris; M10.9 Gout, unspecified; I27.20 Pulmonary hypertension, unspecified; M51.36 Other intervertebral disc degeneration, lumbar region; D64.9 Anemia, unspecified; E21.3 Hyperparathyroidism, unspecified; I71.4 Abdominal aortic aneurysm, without rupture; Z90.49 Acquired absence of other specified parts of digestive tract; Z96.652 Presence of left artificial knee joint; Z98.42 Cataract extraction status, left eye; Z96.1 Presence of intraocular lens; Z96.641 Presence of right artificial hip joint; Z98.890 Other specified postprocedural states; Z82.49 Family history of ischemic heart disease and other diseases of the circulatory system; Z88.8 Allergy status to other drugs, medicaments and biological substances; Z79.899 Other long term (current) drug therapy; Z79.82 Long term (current) use of aspirin
CPT/HCPCS: 36415; 49324; 80048; 82040; 85025; A7015; C1752; J0690; J1100; J1644; J2001; J2370; J2405; J2710; J3010; J3490; J7030; J7040